=== PATIENT | female | born 1965 | race Two or more races ===

== ENCOUNTER → 2016-08-29 | Outpatient (CLI) | payer OTHER | LOC: M PAIN 13:20 | PROVIDERS: ATTEND Anesthesiology | DX: G89.29 Other chronic pain (principal); M50.122 Cervical disc disorder at C5-C6 level with radiculopathy; M47.812 Spondylosis without myelopathy or radiculopathy, cervical region; M79.1 Myalgia; M46.1 Sacroiliitis, not elsewhere classified; F41.9 Anxiety disorder, unspecified; M19.90 Unspecified osteoarthritis, unspecified site; J45.909 Unspecified asthma, uncomplicated; K52.9 Noninfective gastroenteritis and colitis, unspecified; K21.9 Gastro-esophageal reflux disease without esophagitis; R01.1 Cardiac murmur, unspecified; I34.1 Nonrheumatic mitral (valve) prolapse; I10 Essential (primary) hypertension; G70.9 Myoneural disorder, unspecified; Z88.6 Allergy status to analgesic agent; Z88.5 Allergy status to narcotic agent; Z88.8 Allergy status to other drugs, medicaments and biological substances; Z91.040 Latex allergy status; Z79.1 Long term (current) use of non-steroidal anti-inflammatories (NSAID); Z79.899 Other long term (current) drug therapy; Z87.891 Personal history of nicotine dependence ==

== ENCOUNTER → 2016-09-20 | Outpatient (CLI) | payer OTHER ==
[~2016-09-20] MED LIST: ISOVUE-M 300 61% 15ML VIAL (Q9967) As Ordered ONE; LIDOCAINE 1% SDV INJ 30 ML VIAL As Ordered ONE; diazePAM 5 MG TAB As Ordered ONE; diphenhydrAMINE 25 MG CAP As Ordered ONE; methylPREDNISolone SUSP 40 MG/ML (DEPO-medrol) VIAL (J1030) As Ordered ONE; oxyCODONE 5MG TAB As Ordered ONE
--- NOTE | 2016-09-20 16:23 | REP ---
FLUORO GUIDED SPINAL INJECTION: The films were reviewed with Dr. Phoenix. The patient has a history of neck pain. The portable C-Arm is provided in the OR for Dr. Bañuelos for fluoroscopic guidance. Three intraoperative fluoroscopic spot films were obtained for needle placement verification for cervical epidural injection. The films are on the PACs system and are available for review. 14 seconds of fluoroscopy time was utilized for this procedure. Reviewed by JEB Miller 09/20/2016 04:29 PEdited and Signed by Hemant Phoenix MD 09/21/2016 01:15 P
--- NOTE | 2016-09-26 23:44 | ECWPNPC ---
PATIENT NAME: FELIX SKAGGS : 1965 GENDER: FEMALE VISIT DATE: 09/20/2016 DISCHARGE DATE: 09/20/16 1145 VISIT LOCKED DATE TIME: PHYSICIAN: ALEJANDRO MORENO RESOURCE: ALEJANDRO MORENO REASON FOR APPOINTMENT 1. ANI CURRENT MEDICATIONS TAKING ZYRTEC 10 MG TABLET 1 TABLET ORALLY ONCE A DAY, NOTES: 09-19-16 TAKING ATIVAN 0.5 0.5MG TABLET 1 TAB ORAL DAILY, NOTES: 09-12-162199 TAKING PROTONIX 20 MG TABLET DELAYED RELEASE 1 TABLETS ORALLY ONCE A DAY, NOTES: 09-19-16 TAKING ESTRADIOL 0.5 MG TABLET 1 TABLET ORALLY DAILY, NOTES: 09-19-162199 TAKING TRIAMTERENE-HCTZ 37.5-25 MG TABLET 1 TABLET IN THE MORNING ORALLY ONCE A DAY, NOTES: 09-19-161999 TAKING BACLOFEN 10 MG TABLET 1 TABLET WITH FOOD OR MILK ORALLY THREE TIMES A DAY, NOTES: 09-19-161999 TAKING IBUPROFEN 800 MG TABLET 1 TABLET ORALLY Q 6 HOURS NEEDED, NOTES: 09-19-161999 NOT-TAKING CYMBALTA 30 MG CAPSULE DELAYED RELEASE PARTICLES 1 CAPSULE ORALLY WITH FOOD TWICE A DAY FOR PAIN MDD2 MEDICATION LIST REVIEWED AND RECONCILED WITH THE PATIENT PAST MEDICAL HISTORY HIATAL HERNIA ANXIETY ATHRITIS ASTHMA COLITIS GERD HEART MURMUR(MITRAL VALVE PROLASP) HTN IBS NEUROMUSCULAR DISORDER LOW BACK PAIN ALLERGIES ASPIRIN: NAUSEA/VOMITING: SIDE EFFECTS CODEINE PHOSPHATE: SEVERE ITCHING: ALLERGY LANSOPRAZOLE: TONGUE AND LIP SWELLING: ALLERGY LATEX (FOR ALLERGY USE ONLY): ITCHING: ALLERGY DILAUDID: SEVERE ITCHING: ALLERGY VITAL SIGNS WT 142 LBS, HT 64 IN, BMI 24.37 INDEX, BP 124/67 MM HG, HR 68 /MIN, RR 16 /MIN, TEMP 98.7 F, OXYGEN SAT % 99, NA INITIALS TL 0920, REVIEWED BY: VD. ASSESSMENTS CERVICAL DISC DISORDER WITH RADICULOPATHY, CERVICOTHORACIC REGION - M50.13 (PRIMARY) PROCEDURES PN CERVICAL EPIDURAL PRE PROCEDURE DIAGNOSIS CERVICAL DISC DISORDER WITH RADICULOPATHY , CERVICAL RADICULOPATHY POST PROCEDURE DIAGNOSIS CERVICAL DISC DISORDER WITH RADICULOPATHY , CERVICAL RADICULOPATHY PROCEDURE CERVICAL EPIDURAL STEROID INJECTION UNDER FLUOROSCOPIC GUIDANCE SURGEON DR. ALEJANDRO MORENO ANALYTICS SPECIALIST NONE ANESTHESIA LOCAL PRE PROCEDURE NOTE THE PATIENT HAS A HISTORY OF CHRONIC CERVICAL PAIN. I EVALUATE THE PATIENT AND REVIEWED THE CHART. I WENT OVER THE RISKS, ALTERNATIVES, AND BENEFITS ASSOCIATED WITH THIS PROCEDURE. THE PATIENT WOULD LIKE TO PROCEED AND GIVE CONSENT TO PERFORMED THE PROCEDURE. THE PATIENT DENIES UNEXPLAINABLE WEIGHT LOSS, FEVER, CHILLS, OR NEW CHANGES IN URINARY OR BOWEL CONTROL DESCRIPTION OF PROCEDURE THE PATIENT WAS BROUGHT TO THE PROCEDURE ROOM AND PLACED IN THE PRONE POSITION. THE CERVICOTHORACIC AREA WAS CLEANED WITH BETADINE SOLUTION AND DRAPED ASEPTICALLY. THE PROCEDURE WAS DONE UNDER STERILE CONDITIONS. I CHECKED LATERALITY AND THE LEVEL WHERE THE PROCEDURE WAS GOING TO BE PERFORMED WITH THE PATIENT AND THE SUPPORTING STAFF AT THE MOMENT OF THE TIME OUT IN THE PROCEDURE ROOM. UNDER FLUOROSCOPIC GUIDANCE, THE TARGET WAS SELECTED AT THE INTERLAMINAR LEVEL OF C7-T1. LIDOCAINE WAS USED TO NUMB THE SKIN AND THE SUBCUTANEOUS TISSUE BELOW IT. EPIDURAL TUOHY NEEDLE 17-GAUGE WAS ADVANCED UNDER FLUOROSCOPIC GUIDANCE AND FOLLOWING PATIENT FEEDBACK UNTIL THE EPIDURAL SPACE WAS REACHED 6 CM DEEP INTO THE SKIN BY THE LOSS OF RESISTANCE TECHNIQUE. ISOVUE M DYE 30%, 0.25 ML, WAS INJECTED SHOWING ADEQUATE SPREAD OF THE DYE. THEN, A SOLUTION OF 3 ML OF NORMAL SALINE WITH DEPO-MEDROL 60 MG WAS INJECTED SLOWLY FOLLOWING PATIENT FEEDBACK. THERE WAS NO EVIDENCE OF BLOOD, PARESTHESIA OR CEREBROSPINAL FLUID DURING THE PROCEDURE. THE PATIENT WAS SENT TO THE RECOVERY ROOM. THE PATIENT WAS MOVING THE EXTREMITIES AND DOING WELL. THERE WAS NO COMPLICATION DURING THE PROCEDURE. FLUOROSCOPY TIME WAS 14 SECONDS POST PROCEDURE NOTE THE PATIENT WILL BE SEEN IN A FOLLOW UP IN THE NEXT FEW WEEKS. INSTRUCTIONS WERE GIVEN, QUESTIONS WERE ANSWERED, AND THE PATIENT EXPRESSED UNDERSTANDING AND AGREES WITH THE PLAN. I, GLEN NOVAK, DOCUMENTED THE ABOVE INFORMATION ACTING A SCRIBE FOR DR. MORENO. I HAVE REVIEWED THE ABOVE DOCUMENT, WRITTEN BY GLEN NOVAK SCRIBKelly AND I VERIFY THAT IT IS ACCURATE PN WORKMANS' COMP OPINION IN YOUR OPINION, WAS THE INCIDENT THAT THE PATIENT DESCRIBED THE COMPETENT MEDICAL CAUSE OF THIS INJURY/ILLNESS? YES ARE THE PATIENT'S COMPLAINTS CONSISTENT WITH HIS/HER HISTORY OF THE INJURY/ILLNESS? YES IS THE PATIENT'S HISTORY OF THE INJURY/ILLNESS CONSISTENT WITH YOUR OBJECTIVE FINDING? YES WHAT IS THE PERCENTAGE OF TEMPORARY IMPAIRMENT? MODERATE TO MARKED = 66.7% IS THE PATIENT WORKING? NO DOCTOR ON SITE: ALEJANDRO BONE MD DIAGNOSTIC IMAGING [facility] FLUORO GUIDE SPINE INJECTION (PAIN)[id number] PROCEDURE CODES 69244 CERVICAL/THORACIC W/ IMAGING 6045F RADXPS IN END [id number] PXD DISPOSITION & COMMUNICATION FOLLOW UP 3 WEEKS ELECTRONICALLY SIGNED BY ALEJANDRO MORENO MD ON 09/26/2016 AT 08:54 AM EDT DISCLAIMER : THIS IS A VISIT SUMMARY EXTRACTED FROM THE [employer] CHART. IT IS NOT A COPY OF THE [employer] PROGRESS NOTE. MTDD
== END ==
LOC: M PAIN 09:00
PROVIDERS: ATTEND Anesthesiology
DX: G89.29 Other chronic pain (principal); M50.13 Cervical disc disorder with radiculopathy, cervicothoracic region; Z79.899 Other long term (current) drug therapy; Z88.6 Allergy status to analgesic agent; Z88.5 Allergy status to narcotic agent; Z88.8 Allergy status to other drugs, medicaments and biological substances; Z91.040 Latex allergy status
CPT/HCPCS: 62321; J1030; Q9967

== ENCOUNTER → 2016-10-05 | Outpatient (CLI) | payer OTHER ==
--- NOTE | 2016-10-17 00:40 | ECWPNPC ---
PATIENT NAME: FELIX SKAGGS : 1965 GENDER: FEMALE VISIT DATE: 10/05/2016 DISCHARGE DATE: 10/05/16 1632 VISIT LOCKED DATE TIME: PHYSICIAN: ALEJANDRO MORENO RESOURCE: ALEJANDRO MORENO REASON FOR APPOINTMENT 1. MEDS HISTORY OF PRESENT ILLNESS HISTORY OF PRESENT ILLNESS: PAIN THE PATIENT DESCRIBES THE PAIN... 51 YEAR OLD FEMALE PATIENT WITH HISTORY OF CHRONIC NECK AND LOW BACK PAIN. PATIENT DESCRIBES THE PAIN ACHING, SHOOTING, AND HAVING IT ALL THE TIME WITH A PAIN SCORE OF 9/10 ON TODAY'S VISIT. PATIENT WAS HURT IN A WORK RELATED INJURY IN 06/05/16 WHEN SHE WAS WORKING AT THE [employer] AND SHE WAS COMING UP AN ICY RAMP AND HAD FALLEN. PATIENT HAS TRIED PHYSICAL THERAPY AND REPORTS THAT IT DOES AID IN MUSCLE RELAXATION AND IS ABLE TO DRESS HERSELF WHERE BEFORE HER MUSCLE FELT SO TIGHT THAT SHE WAS UNABLE TO DO SO. PATIENT STATES THAT SHE HAS NOT HAD ANY SURGERY ON HER BACK SINCE THE INJURY. PATIENT RECEIVED A ANI ON 09-20-2016 AND REPORTS OF GETTING ABOUT A 20 TO 30 PERCENT DECREASE IN PAIN RELIEF WITH THE INJECTION. PATIENT STATES THAT A DAY LATER AFTER THE INJECTION SHE WAS DIZZY, AND UPON RISING SHE FELL, PATIENT REPORTS THAT THE FOLLOWING DAY SHE WAS STILL DIZZY TO THE POINT WHERE HER HAD TO HELP HER GO TO THE BATHROOM. PATIENT IS UNSURE WHETHER THE FALL, AFFECTED THE PAIN RELIEF FROM THE INJECTION. PATIENT REPORTS OF RADIATING PAIN FROM HER NECK AREA INTO THE RIGHT ARM WITH NUMBNESS IN HER RIGHT HAND AND RADIATING PAIN FROM HER LOWER BACK INTO HER RIGHT LEG. PATIENT STATES THAT NOW THE PAIN IN THE NECK HAS ALSO RADIATING INTO HER JAW AND EAR. PATIENT REPORTS THAT SHE IS CURRENTLY IN PHYSICAL THERAPY, AND SINCE STARTING PHYSICAL THERAPY HER RANGE OF MOTION IS BETTER, AND PUTTING CLOTHS ON IS EASIER. PATIENT STATES THAT HER NECK HURTS THE MOST TODAY. PATIENT DENIES UNEXPLAINABLE WEIGHT LOSS, FEVER, CHILLS, NEW CHANGES ON HER URINARY OR BOWEL CONTROL. FALL RISK SCREENING: SCREENING :NO FALLS IN THE PAST YEAR CURRENT MEDICATIONS TAKING ZYRTEC 10 MG TABLET 1 TABLET ORALLY ONCE A DAY, NOTES: 09-19-16 TAKING ATIVAN 0.5 0.5MG TABLET 1 TAB ORAL DAILY, NOTES: 09-12-162199 TAKING PROTONIX 20 MG TABLET DELAYED RELEASE 1 TABLETS ORALLY ONCE A DAY, NOTES: 09-19-16 TAKING ESTRADIOL 0.5 MG TABLET 1 TABLET ORALLY DAILY, NOTES: 09-19-162199 TAKING TRIAMTERENE-HCTZ 37.5-25 MG TABLET 1 TABLET IN THE MORNING ORALLY ONCE A DAY, NOTES: 09-19-161999 TAKING BACLOFEN 10 MG TABLET 1 TABLET WITH FOOD OR MILK ORALLY THREE TIMES A DAY, NOTES: 09-19-161999 TAKING IBUPROFEN 800 MG TABLET 1 TABLET ORALLY Q 6 HOURS NEEDED, NOTES: 09-19-161999 NOT-TAKING CYMBALTA 30 MG CAPSULE DELAYED RELEASE PARTICLES 1 CAPSULE ORALLY WITH FOOD TWICE A DAY FOR PAIN MDD2 MEDICATION LIST REVIEWED AND RECONCILED WITH THE PATIENT PAST MEDICAL HISTORY HIATAL HERNIA ANXIETY ATHRITIS ASTHMA COLITIS GERD HEART MURMUR(MITRAL VALVE PROLASP) HTN IBS NEUROMUSCULAR DISORDER LOW BACK PAIN ALLERGIES ASPIRIN: NAUSEA/VOMITING: SIDE EFFECTS CODEINE PHOSPHATE: SEVERE ITCHING: ALLERGY LANSOPRAZOLE: TONGUE AND LIP SWELLING: ALLERGY LATEX (FOR ALLERGY USE ONLY): ITCHING: ALLERGY DILAUDID: SEVERE ITCHING: ALLERGY PERCOCET: HIVES: ALLERGY SURGICAL HISTORY HIATAL HERNIA REPAIR/ THORACOTOMY 09/2012 LEFT ELBOW ULNAR NERVE 2005 LEFT ELBOW ULNAR NERVE 2012 TONSILLECTOMY 1966 TUBAL LIGATION 1988 HYSTERECTOMY WITH LEFT OOPHORECTOMY 1995 RIGHT OOPHORECTOMY 2004 CHOLECYSTECTOMY 2003 RHIZOTOMY-THORACIC SPINE 1984 FAMILY HISTORY FATHER: ALIVE 74 YRS, DIAGNOSED WITH OTHER MOTHER: ALIVE 73 YRS, DIAGNOSED WITH DIABETES, HYPERTENSION 2 SON(S) , 1 DAUGHTER(S) . FATHER--ALZHEIMEROLDEST SON--HTNYOUNGEST SON--BRADYCARDIA. SOCIAL HISTORY GENERAL: PAIN CLINIC PFS, CLERGY, PUBLIC HEALTH REFERRALS CLERGY REFERRAL NEEDED?NO WAS THE PROVIDER NOTIFIED OF ANY PERTINENT INFO?NO PFS REFERRAL NEEDED?NO PUBLIC HEALTH REFERRAL NEEDED?NO PATIENT: ____. HOSPITALIZATION/MAJOR DIAGNOSTIC PROCEDURE COLITIS 2015 ABDOMINAL PAIN 2016 SEVERAL TIMES A CHILD FOR KIDNEY AND BLADDER INFECTIONS AND TREATMENT FOR SURGERIES REVIEW OF SYSTEMS CONSTITUTIONAL: ANY CHANGE IN YOUR MEDICAL CONDITION? NO . CHILLS NO . FEVER NO . INFECTION: DO YOU HAVE NEW INFECTIONS? NO . DO YOU HAVE HISTORY OF MRSA? NO . MUSCULOSKELETAL: ANY NEW PATTERNS OF PAIN OR NUMBNESS? YES PT REPORTS THAT PAIN HAS EXTENDED UP TOWARDS JAW AND EAR RIGHT SIDE OF FACE . GASTROENTEROLOGY: ANY NEW CHANGE IN BOWEL CONTROL? NO . GENITOURINARY: ANY NEW CHANGE IN BLADDER CONTROL? NO . IS THERE A CHANCE YOU COULD BE ? NO . HEMATOLOGY/LYMPH: DO YOU TAKE ANY BLOOD THINNERS? (FOR EXAMPLE- COUMADIN, PLAVIX, AGGRENOX, PLATEL, PRADAXA, OR XARELTO) NO . WHEN WAS YOUR LAST DOSE? DATE: TIME: . NEUROLOGY: HAVE YOU FALLEN IN THE PAST 6 MONTHS? YES PT REPORTS THAT THE DAY AFTER HER PROCEDURE, SHE WAS AT A [employer], AND UPON RISING FELT SUDDENLY EXTREMELY DIZZY. THIS DIZZINESS WAS ACCOMPANIED BY NAUSEA, THIS LASTED UNTIL THE NEXT DAY. . ANY NEW EXTREMITY NUMBNESS OR WEAKNESS? NO . CARDIOLOGY: DO YOU HAVE A PACEMAKER OR DEFIBRILLATOR? NO . RESPIRATORY: HAVE YOU BEEN SICK IN THE PAST WEEK? NO . FEVER NO . FLU LIKE SYMPTOMS? NO . COUGH NO . INTEGUMENTARY: DO YOU HAVE ANY RASHES OR OPEN SORES? NO . ALLERGIC/IMMUNO: ARE YOU ALLERGIC TO SHELLFISH OR IV DYE? NO . ANY NEW ALLERGIES? NO . PSYCHIATRIC: DO YOU HAVE THOUGHTS OF HURTING YOURSELF OR SOMEONE ELSE? NO . ARE YOU ABUSED, NEGLECTED, OR IN AN UNSAFE ENVIRONMENT? NO . ENDOCRINOLOGY: ARE YOU DIABETIC? NO . OTHER: DO YOU NEED ANY PRESCRIPTIONS? NO . IF YES, PLEASE LIST: ____ . ANY NEW PROBLEMS WITH YOUR MEDICATIONS? NO . WHEN DID YOU LAST EAT? ____ . WHEN DID YOU LAST DRINK? ____ . WHAT DID YOU LAST DRINK? ____ . NAME OF PERSON DRIVING YOU HOME? ____ . DO YOU HAVE ANY OTHER QUESTIONS OR CONCERNS NO . REVIEWED BY: PROVIDER: ALEJANDRO MORENO MD . VITAL SIGNS WT 142.4 LBS, HT 64 IN, BMI 24.44 INDEX, BP 124/63 MM HG, HR 87 /MIN, RR 16 /MIN, TEMP 98.5 F, OXYGEN SAT % 97, SAFE IN ENV? (Y/N) YES, NA INITIALS AW 1511, REVIEWED BY: RE. EXAMINATION : PATIENT IS ALERT O X 3 AND COOPERATIVE. PATIENT AMBULATES WITH AN ANTALGIC GAIT. PATIENT IS ABLE TO FULLY ABDUCT HER LEFT ARM WHILE THE RIGHT ARM TO SHOULDER LEVEL ONLY. PATIENT IS ABLE TO EXTEND HER NECK TO 10 DEGREES AND FLEX TO 45 DEGREES. LATERAL MOVEMENT OF THE NECK TO THE RIGHT IS 30 DEGREES AND TO THE LEFT IS 40 DEGREES. THERE IS TENDERNESS IN THE CERVICAL PARASPINAL MUSCLE GROUP ESPECIALLY ON THE RIGHT SIDE. PATIENT'S RIGHT ARM IS WEAKER AT FLEXION AND EXTENSION COMPARED TO THE LEFT. PATIENT'S RIGHT LEG IS WEAKER AT FLEXION AND EXTENSION COMPARED TO THE LEFT. MRI OF THE CERVICAL SPINE DONE ON 06/22/16 SHOWS A DISC EXTRUSION AT C5-C6. MRI OF THE LUMBAR SPINE DONE ON 08/15/16 SHOWS FACET HYPERTROPHY AND A SLIGHT BULGE AT L5-S1. 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 SKAGGS'S PAIN MANAGEMENT CASE. AT THIS TIME THE PATIENT WILL CONTINUE ON THE SAME MEDICATION REGIMEN BEFORE. AFTER EXAMINING THE PATIENT AND REVIEWING THE MRI PATIENT IS A GOOD CANDIDATE FOR A RIGHT C2-C3, C3-C4 CFBT AND A L4-L5 LESI, DUE TO THE PATIENT'S NECK AREA HURTING THE MOST, WE DISCUSSED THE RISK, BENEFITS, AND ALTERNATIVES AND THE PATIENT WOULD LIKE TO PROCEED WITH A CFBT. PATIENT WILL BE BOOKED PENDING APPROVAL. INSTRUCTIONS WERE GIVEN, QUESTIONS WERE ANSWERED, PATIENT REPORTS UNDERSTANDING AND AGREES WITH THE PLAN. I, GLEN NOVAK, DOCUMENTED THE ABOVE INFORMATION ACTING A SCRIBE FOR DR. MORENO. I HAVE REVIEWED THE ABOVE DOCUMENT, WRITTEN BY GLEN OBRIEN AND I VERIFY THAT IT IS ACCURATE. OTHERS NOTES: FACET JOINT INJECTION MATERIAL WAS PRINTED,FACET JOINT INJECTION: YOUR EXPERIENCE MATERIAL WAS PRINTED,FACET JOINT INJECTION: YOUR EXPERIENCE MATERIAL WAS PRINTED. PROCEDURES PN WORKMANS' COMP OPINION IN YOUR OPINION, WAS THE INCIDENT THAT THE PATIENT DESCRIBED THE COMPETENT MEDICAL CAUSE OF THIS INJURY/ILLNESS? YES ARE THE PATIENT'S COMPLAINTS CONSISTENT WITH HIS/HER HISTORY OF THE INJURY/ILLNESS? YES IS THE PATIENT'S HISTORY OF THE INJURY/ILLNESS CONSISTENT WITH YOUR OBJECTIVE FINDING? YES WHAT IS THE PERCENTAGE OF TEMPORARY IMPAIRMENT? MODERATE TO MARKED = 66.7% IS THE PATIENT WORKING? NO DOCTOR ON SITE: ALEJANDOR BONE MD PROCEDURE CODES FA211 ESTABILISHED PATIENT [facility] FACILITY CHARGE G8730 PAIN ASSESS POS TOOL F/U PLAN DOC G8427 DOC MEDS VERIFIED W/PT OR RE DISPOSITION & COMMUNICATION FOLLOW UP CFBT PENDING APPROVAL ELECTRONICALLY SIGNED BY ALEJANDRO MORENO MD ON 10/15/2016 AT 08:19 AM EDT DISCLAIMER : THIS IS A VISIT SUMMARY EXTRACTED FROM THE [employer] CHART. IT IS NOT A COPY OF THE [employer] PROGRESS NOTE. JAZZY
== END ==
LOC: M PAIN 15:00
PROVIDERS: ATTEND Anesthesiology
DX: M50.122 Cervical disc disorder at C5-C6 level with radiculopathy (principal); M50.123 Cervical disc disorder at C6-C7 level with radiculopathy; M51.16 Intervertebral disc disorders with radiculopathy, lumbar region; M51.17 Intervertebral disc disorders with radiculopathy, lumbosacral region; M54.5 Low back pain; G89.29 Other chronic pain; M47.812 Spondylosis without myelopathy or radiculopathy, cervical region; M47.816 Spondylosis without myelopathy or radiculopathy, lumbar region; M47.817 Spondylosis without myelopathy or radiculopathy, lumbosacral region; Z79.818 Long term (current) use of other agents affecting estrogen receptors and estrogen levels; Z79.899 Other long term (current) drug therapy; Z88.6 Allergy status to analgesic agent; Z88.5 Allergy status to narcotic agent; Z88.8 Allergy status to other drugs, medicaments and biological substances; Z91.040 Latex allergy status

== ENCOUNTER → 2025-02-08 | Outpatient (REF) | payer MEDICARE ==
[2025-02-08 13:31] LABS: APPEARANCE, URINE HAZY (CLEAR); BACTERIA, URINE AUTO NEGATIVE (NEGATIVE); BILIRUBIN, URINE AUTO NEGATIVE (NEGATIVE); BLOOD, URINE BLOOD NEGATIVE (NEGATIVE); CALCIUM OXALATE CRYSTALS SMALL; GLUCOSE, URINE (UA) AUTO NEGATIVE (NEGATIVE); KETONE, URINE AUTO NEGATIVE (NEGATIVE); LEUKOCYTE ESTERASE, URINE AUTO 1+ (NEGATIVE); MUCUS, URINE SMALL (NEGATIVE); NITRITE, URINE AUTO NEGATIVE (NEGATIVE); PROTEIN, URINE AUTO NEGATIVE (NEGATIVE); RBC, URINE AUTO 1 /HPF (0-3); SPECIFIC GRAVITY URINE AUTO 1.019 (1.002-1.035); SQUAMOUS EPITHELIAL CELL UR AU 1 /HPF (0-6); UROBILINOGEN, URINE AUTO 0.2 mg/dL (0.0-2.0); WBC, URINE AUTO 18 /HPF (0-3)
== END ==
LOC: M SFHCDERM 12:22
PROVIDERS: ATTEND Internal Medicine Infectious Disease
DX: N39.0 Urinary tract infection, site not specified (principal)

== ENCOUNTER → 2025-05-13 | Outpatient (REF) | payer MEDICARE ==
[2025-05-13 15:55] LABS: APPEARANCE, URINE CLEAR (CLEAR); BACTERIA, URINE AUTO NEGATIVE (NEGATIVE); BILIRUBIN, URINE AUTO NEGATIVE (NEGATIVE); BLOOD, URINE BLOOD NEGATIVE (NEGATIVE); CALCIUM OXALATE CRYSTALS SMALL; GLUCOSE, URINE (UA) AUTO NEGATIVE (NEGATIVE); KETONE, URINE AUTO NEGATIVE (NEGATIVE); LEUKOCYTE ESTERASE, URINE AUTO NEGATIVE (NEGATIVE); MUCUS, URINE SMALL (NEGATIVE); NITRITE, URINE AUTO NEGATIVE (NEGATIVE); PROTEIN, URINE AUTO NEGATIVE (NEGATIVE); RBC, URINE AUTO 1 /HPF (0-3); SPECIFIC GRAVITY URINE AUTO 1.023 (1.002-1.035); SQUAMOUS EPITHELIAL CELL UR AU 1 /HPF (0-6); UROBILINOGEN, URINE AUTO 0.2 mg/dL (0.0-2.0); WBC, URINE AUTO 2 /HPF (0-3)
== END ==
LOC: M SFHCPLAZ 15:28
PROVIDERS: ATTEND Internal Medicine Infectious Disease
DX: N39.0 Urinary tract infection, site not specified (principal)